=== PATIENT | male | born 1960 ===

== ENCOUNTER 2018-01-16 16:33 | Emergency (ER) | payer SELFPAY ==
[~2018-01-16] VITALS: Ht 154.9 cm; Wt 54.5 kg
[2018-01-16 16:38] VITALS: BP 122/85
== END 2018-01-16 23:37 | disposition left against medical advice (07) ==
LOC: ER 16:34
DX: H92.02 Otalgia, left ear (principal); Z53.21 Procedure and treatment not carried out due to patient leaving prior to being seen by health care provider